=== PATIENT | female | born 1985 | race Caucasian/White ===

== ENCOUNTER 2016-10-04 12:23 | Emergency (ER) | payer SELFPAY ==
[2011-02-07 16:16] VITALS: BMI 34.5
== END 2016-10-04 12:45 | disposition left against medical advice (07) ==
LOC: D.ER 12:23
DX: Z02.9 Encounter for administrative examinations, unspecified (principal)

== ENCOUNTER 2019-04-23 07:40 | Emergency (ER) | payer SELFPAY ==
[~2019-04-23] VITALS: Ht 167.6 cm; Wt 83.6 kg
[2019-04-23 07:52] VITALS: Ht 167.6 cm; Wt 83.6 kg
[2019-04-23] MEDS ORDERED: ALBUTEROL SULF8.5 GM (07:53)
[2019-04-23] MEDS ORDERED: MULTI-DAY VITAM1 TAB (07:53)
[2019-04-23 08:33] LABS: BASOPHILS 0.2 % (0-2); EOSINOPHILS 4.7 % (0-7); HEMATOCRIT 41.9 % (36.0-48.0); HEMOGLOBIN 14.2 g/dL (12-16); IMMATURE GRANULOCYTES 0.1 % (0-5); LYMPHOCYTES 16.8 % (15-50); MCH 32.1 pg (26.0-34.0); MCHC 33.9 g/dL (31.0-37.0); MCV 94.8 fL (80.0-100.0); MEAN PLATELET VOLUME 9.8 fL (7.4-10.4); MONOCYTES 11.3 % (2-11); NEUTROPHILS 66.9 % (40-80); RBC 4.42 10x6/uL (4.00-5.40)
[2019-04-23 08:34] LABS: CALC OSMOLALITY 277 mosm/kg (275-300); CALCIUM 8.9 mg/dL (8.5-10.1); CARBON DIOXIDE 26.8 mmol/L (21.0-32.0); CHLORIDE - SERUM 103 mmol/L (98-107); CREATININE - SERUM 0.8 mg/dL (0.6-1.3); GLUCOSE 110 mg/dL (74-106); POTASSIUM - SERUM 4.3 mmol/L (3.5-5.1); SODIUM 140 mmol/L (136-145); UREA NITROGEN 8 mg/dL (7-18); eGFR NON AFRICAN AMERICAN 86 mL/min (90-120)
[2019-04-23 08:35] LABS: APTT 29.9 SECONDS (22.8-39.4); INR 0.97 (0.85-1.17); PLATELET COUNT 254 10x3/uL (130-400); PROTIME 12.4 SECONDS (11.6-15.0)
[2019-04-23 08:50] LABS: ALKALINE PHOSPHATASE 58 U/L (46-116); ALT (SGPT) 35 U/L (10-68); CKMB 1.3 U/L (0.0-3.6); CREATINE KINASE 157 UL (21-215); PRO BNP 20 pg/mL (0-125); TROPONIN-I < 0.017 ng/mL (0.000-0.060)
[2019-04-23] MEDS ORDERED: ALBUTEROL SULF8.5 GM INH (09:30)
[2019-04-23 09:32] VITALS: BP 135/81
== END 2019-04-23 09:38 | disposition home or self-care (01) ==
LOC: D.ER 07:40
PROVIDERS: Family Medicine
DX: J06.9 Acute upper respiratory infection, unspecified (principal); J20.9 Acute bronchitis, unspecified; Z72.0 Tobacco use; J45.909 Unspecified asthma, uncomplicated

== ENCOUNTER → 2020-09-16 | Emergency (ER) | payer OTHER ==
[~2020-09-16] VITALS: Ht 167.6 cm; Wt 93.6 kg
[~2020-09-16] MED LIST: ALBUTEROL SULF8.5 GM; ALBUTEROL SULF8.5 GM INH; DICLOFENAC SODI50 MG PO; MEDROL DOSE PACK4 MG PO; MULTI-DAY VITAM1 TAB
[2020-09-16 15:11] VITALS: BP 161/99; Ht 167.6 cm; Wt 93.6 kg
[2020-09-16 15:47] LABS: BASOPHILS 0.3 % (0-2); EOSINOPHILS 3.5 % (0-7); HEMATOCRIT 39.6 % (36.0-48.0); HEMOGLOBIN 13.8 g/dL (12-16); IMMATURE GRANULOCYTES 0.3 % (0-5); LYMPHOCYTE ABS# 2.83 10x3/uL (1.18-3.74); LYMPHOCYTES 35.7 % (15-50); MCH 31.2 pg (26.0-34.0); MCHC 34.8 g/dL (31.0-37.0); MCV 89.4 fL (80.0-100.0); MEAN PLATELET VOLUME 10.1 fL (7.4-10.4); MONOCYTES 8.2 % (2-11); NEUTROPHIL ABS# 4.13 10x3/uL (1.56-6.13); PLATELET COUNT 277 10x3/uL (130-400); RBC 4.43 10x6/uL (4.00-5.40); RDW 12.9 % (11.5-14.5); WBC 7.9 10x3/uL (4.8-10.8)
[2020-09-16 15:57] LABS: APTT 27.9 SECONDS (22.8-39.4); PROTIME 12.2 SECONDS (11.6-15.0)
[2020-09-16 15:59] LABS: D-DIMER-QUANTITATIVE 0.34 ug/mLFEU (0.20-0.54)
[2020-09-16 16:04] LABS: CALC OSMOLALITY 276 mosm/kg (275-300); CALCIUM 8.9 mg/dL (8.5-10.1); CARBON DIOXIDE 27.8 mmol/L (21.0-32.0); CHLORIDE - SERUM 101 mmol/L (98-107); CREATININE - SERUM 0.9 mg/dL (0.6-1.3); GLUCOSE 130 mg/dL (74-106); POTASSIUM - SERUM 3.4 mmol/L (3.5-5.1); SODIUM 138 mmol/L (136-145); UREA NITROGEN 11 mg/dL (7-18); eGFR NON AFRICAN AMERICAN 75 mL/min (90-120)
[2020-09-16 16:20] LABS: ALBUMIN 4.1 g/dL (3.4-5.0); ALKALINE PHOSPHATASE 63 U/L (30-120); ALT (SGPT) 32 U/L (10-68); BILIRUBIN - TOTAL 0.26 mg/dL (0.2-1.3); CKMB 1.2 U/L (0.0-3.6); CREATINE KINASE 162 UL (21-215); MAGNESIUM - SERUM 2.1 mg/dL (1.8-2.4); PROTEIN - SERUM 7.9 g/dL (6.4-8.2); TROPONIN-I < 0.017 ng/mL (0.000-0.060)
== END | disposition home or self-care (01) ==
LOC: D.ER 14:57
PROVIDERS: Student in an Organized Health Care Education/Training Program
DX: R07.9 Chest pain, unspecified (principal); E87.6 Hypokalemia; R06.02 Shortness of breath; R20.2 Paresthesia of skin